=== PATIENT | male | born 1970 | race Caucasian/White ===

== ENCOUNTER 2017-05-04 11:54 | Day surgery (SDC) | payer OTHER ==
[~2017-05-04] VITALS: Ht 172.7 cm; Wt 74.0 kg
[~2017-05-04 11:54] MED LIST: ZESTRIL10 MG PO; ZETIA10 MG PO; ZOLOFT50 MG PO
[2017-05-04 12:30] VITALS: BP 129/90
[2017-05-04 15:41] VITALS: BP 134/84
[2017-05-04 16:47] VITALS: BP 119/77
[2017-05-04 17:26] VITALS: BP 142/83
== END 2017-05-04 17:34 | disposition home or self-care (01) ==
LOC: SDC
DX: G56.02 Carpal tunnel syndrome, left upper limb (principal); G56.22 Lesion of ulnar nerve, left upper limb; I10 Essential (primary) hypertension; E78.00 Pure hypercholesterolemia, unspecified
CPT/HCPCS: J0131; J0690; J1100; J2250; J2405; J3010; S0020